=== PATIENT | female | born 1965 | race African-American/Black ===

== ENCOUNTER 2017-11-23 18:58 | Inpatient (IN) ==
[2017-11-23 20:10] LABS: Basophils % 0.3 % (0.0-0.8); Eosinophils # 0.1 10*3/uL (0.0-0.87); Eosinophils % 0.8 % (0.00-10.9); Hemoglobin 11.2 GM/DL (12.0-16.0); Immature Granulocytes % 0.2 %; Immature Granulocytes Absolute 0.02 #; Lymphocytes # 1.8 10*3/uL (1.4-4.0); Lymphocytes % 18.6 % (21.3-54.2); Mean Corpuscular Hemoglobin 28 PG (27-34); Mean Corpuscular Volume 88.6 FL (87-102); Monocytes # 0.6 10*3/uL (0.11-0.8); Monocytes % 6.4 % (1.7-12.7); Neutrophils % 73.7 % (38.7-73.9); Platelet Count 98 T/CUMM (130-400); Red Blood Count 3.95 MC/CUMM (3.8-5.5); Red Cell Distribution Width 16.4 % (9.3-17.3); White Blood Count 9.5 T/CUMM (4-12)
[2017-11-23 20:18] LABS: INR 1.1; PT Patient Result 11.4 SECS
[2017-11-23 20:38] LABS: Alanine Aminotransferase 19 U/L (13-56); Albumin 4.1 G/DL (3.4-5.0); Alkaline Phosphatase 89 U/L (45-117); Amylase 63 U/L (25-115); Aspartate Amino Transferase 28 U/L (0-37); Blood Urea Nitrogen 42 MG/DL (7-18); Calcium 9.5 MG/DL (8.5-10.1); Glucose 127 MG/DL (74-106); Osmolality,Calculated 285.8 MOS/KG (273-304); Potassium 3.9 MMOL/L (3.5-5.1); Sodium 137 MMOL/L (136-145)
[2017-11-23 20:55] LABS: Troponin I Only 0.047 NG/ML (0.00-0.045)
[2017-11-23 22:18] LABS: Platelet Estimate Decreased
[2017-11-23] MEDS ORDERED: MORPHINE 2 MG/1 ML SYRINGE ONE (22:30)
[2017-11-23] MEDS ORDERED: MORPHINE 2 MG/1 ML SYRINGE IV STA (22:36)
[2017-11-23] MEDS ORDERED: ONDANSETRON 4 MG/2 ML VIAL IV STA (22:38)
[2017-11-23] MEDS ORDERED: ONDANSETRON 4 MG/2 ML VIAL ONE (22:39)
[2017-11-23] MEDS ORDERED: GLUCAGON 1 MG VIAL IM PRN (23:04)
[2017-11-23] MEDS ORDERED: DEXTROSE 50% 25 GM/50 ML VIAL IV PRN (23:04)
[2017-11-24] MEDS ORDERED: SODIUM CHLORIDE 0.9% 250 ML IV ONE (01:20)
[2017-11-24 02:05] LABS: ABG Base Excess -0.1 MMOL/L (-2.5-2.5); ABG HCO3 24.4 MMOL/L (20-26); ABG Oxygen Saturation 99.4 % (95-100); ABG PCO2 45.5 MM HG (35-48); ABG TCO2 23.1 MMOL/L (23-27); Allen Test Positive
[2017-11-24 02:25] LABS: Basophils % 0.4 % (0.0-0.8); Eosinophils # 0.1 10*3/uL (0.0-0.87); Eosinophils % 1.5 % (0.00-10.9); Hematocrit 32.4 VOL% (35.7-47.0); Hemoglobin 10.9 GM/DL (12.0-16.0); Immature Granulocytes % 0.1 %; Immature Granulocytes Absolute 0.01 #; Lymphocytes # 1.8 10*3/uL (1.4-4.0); Lymphocytes % 22.7 % (21.3-54.2); Mean Corpuscular HGB Conc 33.6 GM/DL (32-36); Mean Corpuscular Hemoglobin 29 PG (27-34); Mean Corpuscular Volume 87.1 FL (87-102); Mean Platelet Volume 11.5 FL (9.6-12.0); Monocytes # 0.6 10*3/uL (0.11-0.8); Monocytes % 7.5 % (1.7-12.7); Neutrophils # 5.4 10*3/uL (1.4-7.4); Neutrophils % 67.8 % (38.7-73.9); Platelet Count 70 T/CUMM (130-400); Red Blood Count 3.72 MC/CUMM (3.8-5.5); Red Cell Distribution Width 16.4 % (9.3-17.3)
[2017-11-24] MEDS ORDERED: METOPROLOL TARTRATE 5 MG/5 ML VIAL IV ONE ×2 (02:36→05:34)
[2017-11-24 02:50] LABS: Platelet Estimate Decreased
[2017-11-24 02:52] LABS: Troponin I Only 0.037 NG/ML (0.00-0.045)
[2017-11-24 02:53] LABS: Albumin 3.7 G/DL (3.4-5.0); Bilirubin,Total 0.6 MG/DL (0.2-1.0); Calcium 9.5 MG/DL (8.5-10.1); Osmolality,Calculated 294.4 MOS/KG (273-304); Potassium 3.6 MMOL/L (3.5-5.1); Total Protein 7.4 G/DL (6.4-8.3)
[2017-11-24] MEDS ORDERED: METOPROLOL TARTRATE 5 MG/5 ML VIAL IV PRN (06:21)
[2017-11-24] MEDS ORDERED: hydrALAZINE 20 MG/1 ML VIAL ONE (07:01)
[2017-11-24] MEDS: hydrALAZINE 20 MG/1 ML VIAL IV PRN ×2 (07:04→14:45)
[2017-11-24] MEDS: PANTOPRAZOLE 40 MG TABLET PO SCH (08:25)
[2017-11-24] MEDS: ONDANSETRON 4 MG/2 ML VIAL IV PRN (08:43)
[2017-11-24] MEDS: INSULIN LISPRO 100 UNIT/ML SUBCUT SCH ×4 (08:45→21:09)
[2017-11-24] MEDS: DOCUSATE SODIUM 100 MG CAPSULE PO SCH ×2 (08:46→21:24)
[2017-11-24] MEDS ORDERED: NITROGLYCERIN SL 0.4 MG TABLET SL PRN (08:46)
[2017-11-24] MEDS: amLODIPine 5 MG TABLET PO SCH (11:42)
[2017-11-24] MEDS: SEVELAMER CARBONATE 800 MG TABLET PO SCH ×2 (11:46→17:12)
[2017-11-24 13:51] LABS: Troponin I Only 0.059 NG/ML (0.00-0.045)
[2017-11-24] MEDS: INSULIN GLARGINE 100 UNIT/ML SUBCUT SCH (21:10)
[2017-11-24] MEDS: CARVEDILOL 12.5 MG TABLET PO SCH (21:24)
[2017-11-24] MEDS: ASPIRIN EC 81 MG TABLET PO SCH (21:24)
[2017-11-24] MEDS: ROSUVASTATIN 20 MG TABLET PO SCH (21:24)
[2017-11-24] MEDS: levETIRAcetam 500 MG TABLET PO SCH (21:24)
[2017-11-24] MEDS: PRASUGREL 10 MG TABLET PO SCH (21:24)
[2017-11-24] MEDS: CINACALCET 30 MG TABLET PO SCH (21:25)
[2017-11-25] MEDS: ACETAMINOPHEN 325 MG TABLET PO PRN (00:06)
[2017-11-25 05:18] LABS: Basophils % 0.2 % (0.0-0.8); Eosinophils % 0.5 % (0.00-10.9); Hematocrit 34.5 VOL% (35.7-47.0); Hemoglobin 10.9 GM/DL (12.0-16.0); Immature Granulocytes % 0.3 %; Immature Granulocytes Absolute 0.03 #; Lymphocytes # 1.5 10*3/uL (1.4-4.0); Lymphocytes % 17.1 % (21.3-54.2); Mean Corpuscular HGB Conc 31.6 GM/DL (32-36); Mean Corpuscular Hemoglobin 29 PG (27-34); Mean Corpuscular Volume 90.1 FL (87-102); Mean Platelet Volume 12.3 FL (9.6-12.0); Monocytes # 0.7 10*3/uL (0.11-0.8); Monocytes % 7.6 % (1.7-12.7); Neutrophils # 6.5 10*3/uL (1.4-7.4); Neutrophils % 74.3 % (38.7-73.9); Platelet Count 96 T/CUMM (130-400); Red Blood Count 3.83 MC/CUMM (3.8-5.5); Red Cell Distribution Width 17.2 % (9.3-17.3); White Blood Count 8.7 T/CUMM (4-12)
[2017-11-25 05:33] LABS: Potassium 4.2 MMOL/L (3.5-5.1)
[2017-11-25 05:43] LABS: Giant Platelets Few; Hypochromasia 1+; Ovalocytes Slight; Platelet Estimate Decreased
[2017-11-25] MEDS: INSULIN LISPRO 100 UNIT/ML SUBCUT SCH ×4 (08:05→22:05)
[2017-11-25] MEDS: SEVELAMER CARBONATE 800 MG TABLET PO SCH ×3 (08:36→18:50)
[2017-11-25] MEDS: DOCUSATE SODIUM 100 MG CAPSULE PO SCH ×2 (08:37→22:03)
[2017-11-25] MEDS: PANTOPRAZOLE 40 MG TABLET PO SCH (08:46)
[2017-11-25] MEDS: amLODIPine 5 MG TABLET PO SCH (08:46)
[2017-11-25] MEDS: levETIRAcetam 500 MG TABLET PO SCH ×2 (08:46→22:03)
[2017-11-25] MEDS ORDERED: COSYNTROPIN 0.25 MG VIAL IM ONE (09:30)
[2017-11-25 12:29] LABS: Folate 7.3 NG/ML (5.4-24.0)
[2017-11-25] MEDS: hydrALAZINE 20 MG/1 ML VIAL IV PRN (12:52)
[2017-11-25] MEDS: ONDANSETRON 4 MG/2 ML VIAL IV PRN ×2 (14:24→21:25)
[2017-11-25] MEDS: MORPHINE 2 MG/1 ML SYRINGE IV PRN ×2 (14:27→17:40)
[2017-11-25] MEDS: ONDANSETRON ODT 4 MG TABLET PO PRN (17:25)
[2017-11-25] MEDS: CINACALCET 30 MG TABLET PO SCH (21:33)
[2017-11-25] MEDS: ROSUVASTATIN 20 MG TABLET PO SCH (22:02)
[2017-11-25] MEDS: PRASUGREL 10 MG TABLET PO SCH (22:04)
[2017-11-25] MEDS: CARVEDILOL 12.5 MG TABLET PO SCH (22:04)
[2017-11-25] MEDS: ASPIRIN EC 81 MG TABLET PO SCH (22:05)
[2017-11-25] MEDS: INSULIN GLARGINE 100 UNIT/ML SUBCUT SCH (22:06)
[2017-11-26 05:34] LABS: Basophils % 0.3 % (0.0-0.8); Eosinophils # 0.1 10*3/uL (0.0-0.87); Hematocrit 33.4 VOL% (35.7-47.0); Hemoglobin 10.7 GM/DL (12.0-16.0); Immature Granulocytes % 0.3 %; Immature Granulocytes Absolute 0.02 #; Lymphocytes # 1.5 10*3/uL (1.4-4.0); Lymphocytes % 21.6 % (21.3-54.2); Mean Corpuscular Hemoglobin 28 PG (27-34); Mean Corpuscular Volume 88.1 FL (87-102); Mean Platelet Volume 12.1 FL (9.6-12.0); Monocytes # 0.7 10*3/uL (0.11-0.8); Monocytes % 9.9 % (1.7-12.7); Neutrophils # 4.6 10*3/uL (1.4-7.4); Neutrophils % 66.9 % (38.7-73.9); Platelet Count 130 T/CUMM (130-400); Red Blood Count 3.79 MC/CUMM (3.8-5.5); Red Cell Distribution Width 17.4 % (9.3-17.3); White Blood Count 6.8 T/CUMM (4-12)
[2017-11-26 06:13] LABS: Calcium 8.9 MG/DL (8.5-10.1)
[2017-11-26 06:21] LABS: Albumin 3.1 G/DL (3.4-5.0); Bilirubin,Total 0.6 MG/DL (0.2-1.0); Calcium 8.9 MG/DL (8.5-10.1); Osmolality,Calculated 288.8 MOS/KG (273-304); Total Protein 6.6 G/DL (6.4-8.3)
[2017-11-26] MEDS: INSULIN LISPRO 100 UNIT/ML SUBCUT SCH ×4 (07:03→21:36)
[2017-11-26] MEDS: SEVELAMER CARBONATE 800 MG TABLET PO SCH ×3 (08:00→18:46)
[2017-11-26] MEDS: DOCUSATE SODIUM 100 MG CAPSULE PO SCH ×2 (09:48→21:35)
[2017-11-26] MEDS: PANTOPRAZOLE 40 MG TABLET PO SCH (10:00)
[2017-11-26] MEDS: levETIRAcetam 500 MG TABLET PO SCH ×2 (10:00→21:34)
[2017-11-26] MEDS: amLODIPine 5 MG TABLET PO SCH (10:00)
[2017-11-26] MEDS ORDERED: ONDANSETRON 4 MG/2 ML VIAL ONE (11:58)
[2017-11-26] MEDS: ONDANSETRON 4 MG/2 ML VIAL IV PRN ×2 (12:02→18:28)
[2017-11-26] MEDS ORDERED: ETOMIDATE 20 MG/10 ML VIAL IV ONE (12:14)
[2017-11-26] MEDS ORDERED: PROPOFOL 200 MG/20 ML VIAL IV ONE (12:14)
[2017-11-26] MEDS ORDERED: LIDOCAINE 2% 5 ML VIAL ONE (12:14)
[2017-11-26] MEDS: MORPHINE 2 MG/1 ML SYRINGE IV PRN (18:31)
[2017-11-26] MEDS: CINACALCET 30 MG TABLET PO SCH (21:34)
[2017-11-26] MEDS: CARVEDILOL 12.5 MG TABLET PO SCH (21:34)
[2017-11-26] MEDS: METHOCARBAMOL 750 MG TABLET PO PRN (21:34)
[2017-11-26] MEDS: ROSUVASTATIN 20 MG TABLET PO SCH (21:34)
[2017-11-26] MEDS: ASPIRIN EC 81 MG TABLET PO SCH (21:34)
[2017-11-26] MEDS: INSULIN GLARGINE 100 UNIT/ML SUBCUT SCH (21:35)
[2017-11-26] MEDS: PRASUGREL 10 MG TABLET PO SCH (21:35)
[2017-11-27] MEDS: ONDANSETRON ODT 4 MG TABLET PO PRN (04:24)
[2017-11-27] MEDS: MORPHINE 2 MG/1 ML SYRINGE IV PRN ×3 (04:24→22:52)
[2017-11-27 05:25] LABS: Basophils % 0.3 % (0.0-0.8); Eosinophils # 0.2 10*3/uL (0.0-0.87); Eosinophils % 3.1 % (0.00-10.9); Hematocrit 34.4 VOL% (35.7-47.0); Hemoglobin 10.7 GM/DL (12.0-16.0); Immature Granulocytes % 0.2 %; Immature Granulocytes Absolute 0.01 #; Lymphocytes # 1.7 10*3/uL (1.4-4.0); Lymphocytes % 26.7 % (21.3-54.2); Mean Corpuscular HGB Conc 31.1 GM/DL (32-36); Mean Corpuscular Hemoglobin 28 PG (27-34); Mean Corpuscular Volume 90.8 FL (87-102); Mean Platelet Volume 11.2 FL (9.6-12.0); Monocytes # 0.7 10*3/uL (0.11-0.8); Monocytes % 11.4 % (1.7-12.7); Neutrophils # 3.6 10*3/uL (1.4-7.4); Neutrophils % 58.3 % (38.7-73.9); Platelet Count 124 T/CUMM (130-400); Red Blood Count 3.79 MC/CUMM (3.8-5.5); Red Cell Distribution Width 16.9 % (9.3-17.3); White Blood Count 6.2 T/CUMM (4-12)
[2017-11-27 06:29] LABS: Calcium 8.9 MG/DL (8.5-10.1); Osmolality,Calculated 276.8 MOS/KG (273-304); Potassium 3.7 MMOL/L (3.5-5.1)
[2017-11-27] MEDS: INSULIN LISPRO 100 UNIT/ML SUBCUT SCH ×4 (07:16→20:20)
[2017-11-27] MEDS: DOCUSATE SODIUM 100 MG CAPSULE PO SCH ×2 (09:21→20:14)
[2017-11-27] MEDS: levETIRAcetam 500 MG TABLET PO SCH ×2 (09:21→20:14)
[2017-11-27] MEDS: amLODIPine 5 MG TABLET PO SCH (09:21)
[2017-11-27] MEDS: PANTOPRAZOLE 40 MG TABLET PO SCH (09:21)
[2017-11-27] MEDS: SEVELAMER CARBONATE 800 MG TABLET PO SCH ×4 (09:21→18:19)
[2017-11-27] MEDS: METHOCARBAMOL 750 MG TABLET PO PRN (13:02)
[2017-11-27] MEDS: ONDANSETRON 4 MG/2 ML VIAL IV PRN ×2 (14:15→22:52)
[2017-11-27] MEDS: ROSUVASTATIN 20 MG TABLET PO SCH (20:14)
[2017-11-27] MEDS: PRASUGREL 10 MG TABLET PO SCH (20:14)
[2017-11-27] MEDS: ASPIRIN EC 81 MG TABLET PO SCH (20:14)
[2017-11-27] MEDS: CINACALCET 30 MG TABLET PO SCH (20:15)
[2017-11-27] MEDS: CARVEDILOL 12.5 MG TABLET PO SCH (20:15)
[2017-11-27] MEDS: INSULIN GLARGINE 100 UNIT/ML SUBCUT SCH (20:21)
[2017-11-28 05:12] LABS: Basophils % 0.3 % (0.0-0.8); Eosinophils # 0.2 10*3/uL (0.0-0.87); Eosinophils % 2.9 % (0.00-10.9); Hematocrit 34.9 VOL% (35.7-47.0); Hemoglobin 11.1 GM/DL (12.0-16.0); Immature Granulocytes % 0.2 %; Immature Granulocytes Absolute 0.01 #; Lymphocytes # 1.6 10*3/uL (1.4-4.0); Lymphocytes % 24.4 % (21.3-54.2); Mean Corpuscular HGB Conc 31.8 GM/DL (32-36); Mean Corpuscular Hemoglobin 28 PG (27-34); Mean Corpuscular Volume 88.8 FL (87-102); Mean Platelet Volume 11.1 FL (9.6-12.0); Monocytes # 0.7 10*3/uL (0.11-0.8); Monocytes % 10.4 % (1.7-12.7); Neutrophils # 4.1 10*3/uL (1.4-7.4); Neutrophils % 61.8 % (38.7-73.9); Platelet Count 132 T/CUMM (130-400); Red Blood Count 3.93 MC/CUMM (3.8-5.5); White Blood Count 6.6 T/CUMM (4-12)
[2017-11-28 05:39] LABS: Osmolality,Calculated 280.7 MOS/KG (273-304)
[2017-11-28] MEDS: SEVELAMER CARBONATE 800 MG TABLET PO SCH ×3 (10:36→18:14)
[2017-11-28] MEDS: INSULIN LISPRO 100 UNIT/ML SUBCUT SCH ×4 (10:36→21:49)
[2017-11-28] MEDS ORDERED: diphenhydrAMINE CAP 25 MG CAPSULE PO PRN (11:14)
[2017-11-28] MEDS: DOCUSATE SODIUM 100 MG CAPSULE PO SCH ×2 (11:36→21:48)
[2017-11-28] MEDS: levETIRAcetam 500 MG TABLET PO SCH ×2 (11:36→21:47)
[2017-11-28] MEDS: PANTOPRAZOLE 40 MG TABLET PO SCH (11:37)
[2017-11-28] MEDS: amLODIPine 5 MG TABLET PO SCH (11:37)
[2017-11-28] MEDS: ACETAMINOPHEN 325 MG TABLET PO PRN (11:38)
[2017-11-28] MEDS: CARVEDILOL 12.5 MG TABLET PO SCH (21:48)
[2017-11-28] MEDS: ROSUVASTATIN 20 MG TABLET PO SCH (21:48)
[2017-11-28] MEDS: CINACALCET 30 MG TABLET PO SCH (21:48)
[2017-11-28] MEDS: INSULIN GLARGINE 100 UNIT/ML SUBCUT SCH (21:48)
[2017-11-28] MEDS: ASPIRIN EC 81 MG TABLET PO SCH (21:48)
[2017-11-28] MEDS: PRASUGREL 10 MG TABLET PO SCH (21:48)
[2017-11-28] MEDS: MORPHINE 2 MG/1 ML SYRINGE IV PRN (23:19)
[2017-11-28] MEDS: ONDANSETRON 4 MG/2 ML VIAL IV PRN (23:20)
[2017-11-29 07:19] LABS: Basophils % 0.4 % (0.0-0.8); Eosinophils # 0.1 10*3/uL (0.0-0.87); Eosinophils % 2.1 % (0.00-10.9); Hematocrit 36.7 VOL% (35.7-47.0); Hemoglobin 11.3 GM/DL (12.0-16.0); Immature Granulocytes % 0.2 %; Immature Granulocytes Absolute 0.01 #; Lymphocytes # 1.5 10*3/uL (1.4-4.0); Lymphocytes % 29.4 % (21.3-54.2); Mean Corpuscular HGB Conc 30.8 GM/DL (32-36); Mean Corpuscular Hemoglobin 28 PG (27-34); Mean Corpuscular Volume 91.5 FL (87-102); Mean Platelet Volume 10.9 FL (9.6-12.0); Monocytes # 0.5 10*3/uL (0.11-0.8); Monocytes % 10.4 % (1.7-12.7); NRBC # 0.02 10*3/uL; Neutrophils % 57.5 % (38.7-73.9); Platelet Count 124 T/CUMM (130-400); Red Blood Count 4.01 MC/CUMM (3.8-5.5); Red Cell Distribution Width 16.7 % (9.3-17.3); White Blood Count 5.2 T/CUMM (4-12)
[2017-11-29 07:42] LABS: Calcium 8.4 MG/DL (8.5-10.1); Osmolality,Calculated 280.7 MOS/KG (273-304); Potassium 4.2 MMOL/L (3.5-5.1)
[2017-11-29] MEDS: amLODIPine 5 MG TABLET PO SCH (08:42)
[2017-11-29] MEDS: INSULIN LISPRO 100 UNIT/ML SUBCUT SCH ×4 (08:42→21:23)
[2017-11-29] MEDS: levETIRAcetam 500 MG TABLET PO SCH ×2 (08:42→21:18)
[2017-11-29] MEDS: DOCUSATE SODIUM 100 MG CAPSULE PO SCH ×2 (08:42→21:18)
[2017-11-29] MEDS: PANTOPRAZOLE 40 MG TABLET PO SCH (08:42)
[2017-11-29] MEDS: SEVELAMER CARBONATE 800 MG TABLET PO SCH ×3 (08:42→18:15)
[2017-11-29] MEDS: MAGNESIUM HYDROXIDE SUSP 30 ML UDCUP PO PRN ×2 (12:47→21:05)
[2017-11-29] MEDS: MORPHINE 2 MG/1 ML SYRINGE IV PRN ×2 (21:05→23:05)
[2017-11-29] MEDS: ASPIRIN EC 81 MG TABLET PO SCH (21:16)
[2017-11-29] MEDS: CINACALCET 30 MG TABLET PO SCH (21:17)
[2017-11-29] MEDS: ROSUVASTATIN 20 MG TABLET PO SCH (21:17)
[2017-11-29] MEDS: PRASUGREL 10 MG TABLET PO SCH (21:18)
[2017-11-29] MEDS: ONDANSETRON 4 MG/2 ML VIAL IV PRN (21:19)
[2017-11-29] MEDS: INSULIN GLARGINE 100 UNIT/ML SUBCUT SCH (21:20)
[2017-11-29] MEDS: CARVEDILOL 12.5 MG TABLET PO SCH (23:06)
[2017-11-29] MEDS: ONDANSETRON ODT 4 MG TABLET PO PRN (23:06)
[2017-11-30 07:29] LABS: Basophils % 0.2 % (0.0-0.8); Eosinophils # 0.2 10*3/uL (0.0-0.87); Hematocrit 35.1 VOL% (35.7-47.0); Hemoglobin 11.3 GM/DL (12.0-16.0); Immature Granulocytes % 0.2 %; Immature Granulocytes Absolute 0.01 #; Lymphocytes # 1.5 10*3/uL (1.4-4.0); Lymphocytes % 25.6 % (21.3-54.2); Mean Corpuscular HGB Conc 32.2 GM/DL (32-36); Mean Corpuscular Hemoglobin 29 PG (27-34); Mean Corpuscular Volume 89.5 FL (87-102); Mean Platelet Volume 11.2 FL (9.6-12.0); Monocytes # 0.6 10*3/uL (0.11-0.8); Monocytes % 11.1 % (1.7-12.7); Neutrophils # 3.4 10*3/uL (1.4-7.4); Neutrophils % 59.9 % (38.7-73.9); Platelet Count 120 T/CUMM (130-400); Red Blood Count 3.92 MC/CUMM (3.8-5.5); Red Cell Distribution Width 17.2 % (9.3-17.3); White Blood Count 5.7 T/CUMM (4-12)
[2017-11-30 07:59] LABS: Calcium 9.1 MG/DL (8.5-10.1); Osmolality,Calculated 282.5 MOS/KG (273-304); Potassium 4.3 MMOL/L (3.5-5.1)
[2017-11-30] MEDS: INSULIN LISPRO 100 UNIT/ML SUBCUT SCH ×3 (09:11→17:30)
[2017-11-30] MEDS: SEVELAMER CARBONATE 800 MG TABLET PO SCH ×3 (09:30→17:52)
[2017-11-30] MEDS: DOCUSATE SODIUM 100 MG CAPSULE PO SCH (09:31)
[2017-11-30] MEDS: amLODIPine 5 MG TABLET PO SCH (09:31)
[2017-11-30] MEDS: PANTOPRAZOLE 40 MG TABLET PO SCH (09:31)
[2017-11-30] MEDS: levETIRAcetam 500 MG TABLET PO SCH (09:31)
[2017-11-30] MEDS: METHOCARBAMOL 750 MG TABLET PO PRN (12:53)
[2017-11-30 17:06] VITALS: BP 171/83
== END 2017-11-30 19:05 | DRG 312 ==
LOC: EDBD → EDUNIT# → N.ED 18:58 → MERGE 23:04 → N.EDINP 23:04 → N.5E 11-24 00:24 → N.CC 11-24 01:42 → N.TELEN 11-27 20:55
PROVIDERS: ADMIT Internal Medicine; ATTEND Internal Medicine

== ENCOUNTER 2018-11-27 01:24 | Observation (INO) ==
[2018-11-27] MEDS ORDERED: ASPIRIN 325 MG TABLET PO STA (02:28)
[2018-11-27 02:49] LABS: Albumin 3.5 G/DL (3.4-5.0); Bilirubin,Total 0.4 MG/DL (0.2-1.0); Calcium 9.3 MG/DL (8.5-10.1); Osmolality,Calculated 301.1 MOS/KG (273-304); Potassium 5.5 MMOL/L (3.5-5.1); Total Protein 8.4 G/DL (6.4-8.3)
[2018-11-27] MEDS: NITROGLYCERIN SL 0.4 MG TABLET SL PRN ×2 (02:53→02:58)
[2018-11-27] MEDS ORDERED: PROMETHAZINE 25 MG TABLET PO STA (03:08)
[2018-11-27] MEDS ORDERED: MORPHINE 4 MG/1 ML VIAL IV STA (03:08)
[2018-11-27] MEDS ORDERED: NITROGLYCERIN SL 0.4 MG TABLET SL STA ×2 (03:09→03:56)
[2018-11-27 03:38] LABS: Basophils % 0.3 % (0.0-0.8); Eosinophils # 0.1 10*3/uL (0.0-0.87); Eosinophils % 1.1 % (0.00-10.9); Hematocrit 33.2 VOL% (35.7-47.0); Hemoglobin 10.2 GM/DL (12.0-16.0); Immature Granulocytes % 0.2 %; Immature Granulocytes Absolute 0.02 #; Lymphocytes # 1.5 10*3/uL (1.4-4.0); Lymphocytes % 16.9 % (21.3-54.2); Mean Corpuscular HGB Conc 30.7 GM/DL (32-36); Mean Corpuscular Hemoglobin 30 PG (27-34); Mean Corpuscular Volume 96.8 FL (87-102); Mean Platelet Volume 10.6 FL (9.6-12.0); Monocytes # 0.6 10*3/uL (0.11-0.8); Monocytes % 7.2 % (1.7-12.7); Neutrophils # 6.6 10*3/uL (1.4-7.4); Neutrophils % 74.3 % (38.7-73.9); Platelet Count 135 T/CUMM (130-400); Red Blood Count 3.43 MC/CUMM (3.8-5.5); Red Cell Distribution Width 15.1 % (9.3-17.3); White Blood Count 8.9 T/CUMM (4-12)
[2018-11-27 03:43] LABS: PT Patient Result 10.4 SECS
[2018-11-27] MEDS ORDERED: PROMETHAZINE 25 MG/1 ML VIAL IM PRN (03:56)
[2018-11-27 05:29] LABS: Troponin I 0.047 NG/ML (0.00-0.045)
[2018-11-27 08:05] LABS: Troponin I 0.055 NG/ML (0.00-0.045)
[2018-11-27 09:48] LABS: Hepatitis A Ab IgM Quant 0.31 Index; Hepatitis A Ab IgM Result Negative (Negative); Hepatitis B Core IgM Quant 0.12 Index; Hepatitis B Core IgM Result Negative (Negative); Hepatitis B Surface Ag Result Negative (Negative); Hepatitis C Virus Ab Quant 0.04 Index; Hepatitis C Virus Ab Result Negative (Negative)
[2018-11-27 10:37] LABS: Troponin I 0.057 NG/ML (0.00-0.045)
[2018-11-27] MEDS ORDERED: NITROGLYCERIN SL 0.4 MG TABLET SL PRN (10:37)
[2018-11-27] MEDS ORDERED: hydrOXYzine HCL 10 MG TABLET PO PRN (10:37)
[2018-11-27] MEDS: SEVELAMER CARBONATE 800 MG TABLET PO SCH ×2 (13:18→17:32)
[2018-11-27] MEDS: ACETAMINOPHEN 325 MG TABLET PO PRN ×2 (13:35→20:05)
[2018-11-27] MEDS: PANTOPRAZOLE 40 MG TABLET PO SCH (13:38)
[2018-11-27] MEDS: ASPIRIN EC 325 MG TABLET PO SCH (13:38)
[2018-11-27] MEDS: CINACALCET 30 MG TABLET PO SCH (21:43)
[2018-11-27] MEDS: ROSUVASTATIN 20 MG TABLET PO SCH (21:43)
[2018-11-27] MEDS: INSULIN GLARGINE 100 UNIT/ML SUBCUT SCH (21:44)
[2018-11-28] MEDS: amLODIPine 5 MG TABLET PO SCH (08:47)
[2018-11-28] MEDS: SEVELAMER CARBONATE 800 MG TABLET PO SCH ×3 (08:47→17:05)
[2018-11-28] MEDS: PANTOPRAZOLE 40 MG TABLET PO SCH (08:47)
[2018-11-28] MEDS: ASPIRIN EC 325 MG TABLET PO SCH (08:47)
[2018-11-28] MEDS: PRASUGREL 10 MG TABLET PO SCH (08:47)
[2018-11-28] MEDS: ACETAMINOPHEN 325 MG TABLET PO PRN ×2 (08:51→15:36)
[2018-11-28] MEDS: ROSUVASTATIN 20 MG TABLET PO SCH (21:31)
[2018-11-28] MEDS: INSULIN GLARGINE 100 UNIT/ML SUBCUT SCH (21:31)
[2018-11-28] MEDS: CINACALCET 30 MG TABLET PO SCH (21:31)
[2018-11-29] MEDS ORDERED: POTASSIUM CHLORIDE RIDER 10 MEQ in PREMIX 1 EACH IV PRN (08:39)
[2018-11-29] MEDS ORDERED: MAGNESIUM SULF RIDER 2 GM in PREMIX 1 EACH IV PRN (08:39)
[2018-11-29] MEDS ORDERED: LINACLOTIDE 145 MCG CAPSULE PO SCH (09:00)
[2018-11-29] MEDS: ASPIRIN EC 81 MG TABLET PO SCH (09:42)
[2018-11-29] MEDS: PANTOPRAZOLE 40 MG TABLET PO SCH (09:42)
[2018-11-29] MEDS: amLODIPine 5 MG TABLET PO SCH (09:42)
[2018-11-29] MEDS: PRASUGREL 10 MG TABLET PO SCH (09:43)
[2018-11-29] MEDS ORDERED: FAMOTIDINE 20 MG/2 ML VIAL IV ONE (10:30)
[2018-11-29] MEDS ORDERED: diphenhydrAMINE 50 MG/1 ML VIAL IV ONE (10:30)
[2018-11-29] MEDS ORDERED: HYDROCORTISONE 100 MG VIAL IV ONE (10:30)
[2018-11-29] MEDS ORDERED: HEPARIN/NACL 0.9% 2 UNITS/ML 1,000 ML IV ONE (11:39)
[2018-11-29] MEDS: SODIUM CHLORIDE 0.9% 1,000 ML IV SCH (12:30)
[2018-11-29] MEDS ORDERED: LIDOCAINE 1% 20 ML VIAL ONE (13:34)
[2018-11-29] MEDS ORDERED: MIDAZOLAM 2 MG/2 ML VIAL ONE (13:37)
[2018-11-29] MEDS ORDERED: fentaNYL 100 MCG/2 ML VIAL ONE (13:37)
[2018-11-29] MEDS ORDERED: HYDROmorphone 2 MG/1 ML VIAL ONE (14:18)
[2018-11-29] MEDS: ACETAMINOPHEN 325 MG TABLET PO PRN ×2 (15:55→21:57)
[2018-11-29] MEDS: SEVELAMER CARBONATE 800 MG TABLET PO SCH ×2 (17:59→18:49)
[2018-11-29] MEDS: ASPIRIN EC 325 MG TABLET PO SCH (18:00)
[2018-11-29] MEDS: CINACALCET 30 MG TABLET PO SCH (21:52)
[2018-11-29] MEDS: ROSUVASTATIN 20 MG TABLET PO SCH (21:56)
[2018-11-29] MEDS: INSULIN GLARGINE 100 UNIT/ML SUBCUT SCH (22:00)
[2018-11-30] MEDS ORDERED: methylPREDNISolone SOD SUC 125 MG/2 ML VIAL IV ONE (05:00)
[2018-11-30] MEDS: SODIUM CHLORIDE 0.9% 1,000 ML IV SCH ×2 (06:20→12:41)
[2018-11-30] MEDS ORDERED: diphenhydrAMINE 50 MG/1 ML VIAL ONE (08:00)
[2018-11-30] MEDS ORDERED: EPINEPHrine 1 MG/ML VIAL ONE (08:01)
[2018-11-30] MEDS ORDERED: methylPREDNISolone SOD SUC 125 MG/2 ML VIAL ONE (08:01)
[2018-11-30] MEDS ORDERED: diphenhydrAMINE 50 MG/1 ML VIAL IV ONE (08:10)
[2018-11-30] MEDS ORDERED: HEPARIN 5,000 UNIT/1 ML VIAL ONE (09:03)
[2018-11-30] MEDS ORDERED: ALTEPLASE 2 MG VIAL ONE (09:10)
[2018-11-30 12:07] LABS: Calcium 8.2 MG/DL (8.5-10.1)
[2018-11-30 12:11] LABS: Potassium 6.1 MMOL/L (3.5-5.1)
[2018-11-30] MEDS: SEVELAMER CARBONATE 800 MG TABLET PO SCH ×2 (12:41→14:39)
[2018-11-30] MEDS: PRASUGREL 10 MG TABLET PO SCH (14:38)
[2018-11-30] MEDS: ASPIRIN EC 81 MG TABLET PO SCH (14:38)
[2018-11-30] MEDS: amLODIPine 5 MG TABLET PO SCH (14:38)
[2018-11-30] MEDS: PANTOPRAZOLE 40 MG TABLET PO SCH (14:39)
[2018-11-30 16:12] VITALS: BP 150/69
== END 2018-11-30 16:14 | disposition home or self-care (01) ==
LOC: N.EDINP 01:24 → N.ED 01:24 → N.TELES 04:12
PROVIDERS: ADMIT Internal Medicine; ATTEND Internal Medicine
PROC: CLCCHCL (ICD-10-PCS; 2018-11-29 12:45)

== ENCOUNTER 2019-07-20 08:58 | Inpatient (IN) ==
[~2019-07-20 08:58] MED LIST: CEFUROXIME INJ 1,500 MG in SYRINGE 1 EACH IV ONE; DEXTROSE 50% 25 GM/50 ML VIAL IV PRN; GLUCAGON 1 MG VIAL IM PRN
[2019-07-20] MEDS ORDERED: CHLORHEXIDINE 4% SOLN 118 ML BOTTLE TOP SCH (09:00)
[2019-07-20] MEDS ORDERED: CHLORHEXIDINE 0.12% ORAL RINSE 60 ML BOTTLE SWISH/SPIT SCH (09:00)
[2019-07-20 11:54] LABS: ABG Base Excess 1.4 MMOL/L (-2.5-2.5); ABG HCO3 25.6 MMOL/L (20-26); ABG PCO2 39.9 MM HG (35-48); ABG PH 7.419 (7.35-7.45); ABG PO2 76.2 MM HG (80-95); ABG TCO2 23.5 MMOL/L (23-27); Allen Test Positive; Pt O2 Delivery Device Room Air
[2019-07-20] MEDS ORDERED: INSULIN LISPRO 100 UNIT/ML SUBCUT ONE (23:18)
[2019-07-21 07:08] LABS: Basophils % 0.1 % (0.0-0.8); Eosinophils % 0.4 % (0.00-10.9); Hematocrit 32.2 VOL% (35.7-47.0); Hemoglobin 10.1 GM/DL (12.0-16.0); Immature Granulocytes % 0.1 %; Immature Granulocytes Absolute 0.01 #; Lymphocytes # 1.1 10*3/uL (1.4-4.0); Lymphocytes % 16.4 % (21.3-54.2); Mean Corpuscular HGB Conc 31.4 GM/DL (32-36); Mean Corpuscular Volume 94.4 FL (87-102); Mean Platelet Volume 10.7 FL (9.6-12.0); Monocytes % 10.9 % (1.7-12.7); Neutrophils % 72.1 % (38.7-73.9); Platelet Count 114 T/CUMM (130-400); Red Blood Count 3.41 MC/CUMM (3.8-5.5); Red Cell Distribution Width 14.7 % (9.3-17.3); White Blood Count 6.8 T/CUMM (4-12)
[2019-07-21 07:26] LABS: Albumin 3.1 G/DL (3.4-5.0); Bilirubin,Total 0.4 MG/DL (0.2-1.0); Calcium 8.2 MG/DL (8.5-10.1); Osmolality,Calculated 294.4 MOS/KG (273-304); Total Protein 6.9 G/DL (6.4-8.3)
[2019-07-21] MEDS: CHLORHEXIDINE 4% SOLN 118 ML BOTTLE TOP SCH ×3 (08:02→21:12)
[2019-07-21] MEDS: amLODIPine 5 MG TABLET PO SCH (14:07)
[2019-07-21] MEDS: SODIUM CHLORIDE 0.9% 1,000 ML IV SCH (14:07)
[2019-07-21 20:39] LABS: Calcium 8.2 MG/DL (8.5-10.1)
[2019-07-21] MEDS ORDERED: ROSUVASTATIN 20 MG TABLET PO SCH (21:00)
[2019-07-21] MEDS ORDERED: INSULIN GLARGINE 100 UNIT/ML SUBCUT SCH (21:00)
[2019-07-21] MEDS: CHLORHEXIDINE 0.12% ORAL RINSE 60 ML BOTTLE SWISH/SPIT SCH (21:08)
[2019-07-21] MEDS ORDERED: ACETAMINOPHEN 325 MG TABLET PO PRN (21:59)
[2019-07-21] MEDS ORDERED: oxyCODONE/ACETAMINOPHEN 5-325 MG TABLET PO PRN (22:00)
[2019-07-22] MEDS ORDERED: PAPAVERINE 60 MG/2 ML VIAL ONE (04:24)
[2019-07-22] MEDS ORDERED: VANCOMYCIN 1,000 MG VIAL ONE (04:24)
[2019-07-22] MEDS ORDERED: VANCOMYCIN 500 MG VIAL ONE (04:24)
[2019-07-22] MEDS: CHLORHEXIDINE 4% SOLN 118 ML BOTTLE TOP SCH ×2 (04:30→11:59)
[2019-07-22] MEDS ORDERED: CEFUROXIME INJ 1,500 MG in SYRINGE 1 EACH IV ONE (05:00)
[2019-07-22] MEDS ORDERED: PHENYLEPHRINE DRIP 20 MG/250 ML PREMIX IV ONE (05:33)
[2019-07-22] MEDS ORDERED: HEPARIN/NACL 0.9% 2 UNITS/ML 500 ML IV ONE (05:33)
[2019-07-22] MEDS ORDERED: SUFentanil 250 MCG/5 ML AMP ONE (05:33)
[2019-07-22] MEDS ORDERED: MIDAZOLAM 10 MG/2 ML VIAL ONE (05:34)
[2019-07-22] MEDS ORDERED: FAMOTIDINE 20 MG TABLET PO ONE (06:00)
[2019-07-22] MEDS ORDERED: DIAZEPAM 5 MG TABLET PO ONE (06:00)
[2019-07-22 08:14] LABS: ABG Base Excess 4.6 MMOL/L (-2.5-2.5); ABG HCO3 28.6 MMOL/L (20-26); ABG PCO2 32.4 MM HG (35-48); ABG PH 7.531 (7.35-7.45); ABG TCO2 24.8 MMOL/L (23-27); Glucose Heart Surgery 221 MG/DL (74-106); Hematocrit Heart Surgery 28.7 PERCENT (37-47); Hemoglobin Heart Surgery 9.3 G/DL (12.0-16.0); Ionized Calcium Arterial 0.99 MMOL/L (1.21-1.46); PCO2 Patient Temp Arterial 32.4 MMHG; PH Patient Temp Arterial 7.531; Patient Temperature 37 CELCIUS; Potassium Heart/CVR 3.7 MMOL/L (3.5-5.1); Sodium Heart/CVR 137 MMOL/L (135-145)
[2019-07-22 09:42] LABS: Hematocrit Heart Surgery 27.4 PERCENT (37-47); Hemoglobin Heart Surgery 8.8 G/DL (12.0-16.0); PCO2 Patient Temp Venous 32.2 MM HG; PH Patient Temp Venous 7.502; PO2 Patient Temp Venous 39.4 MM HG; Potassium Heart/CVR 4.3 MMOL/L (3.5-5.1); VBG Base Excess 2.4 MEQ/L (0-4); VBG HCO3 26.4 MEQ/L (24-28); VBG Oxygen Saturation 88.7 %; VBG PCO2 37.2 MMHG (41-51); VBG PH 7.457; VBG PO2 48.4 MMHG (17-40)
[2019-07-22 10:05] LABS: Hemoglobin Heart Surgery 9.2 G/DL (12.0-16.0); PCO2 Patient Temp Venous 27.5 MM HG; PH Patient Temp Venous 7.537; PO2 Patient Temp Venous 40.2 MM HG; Potassium Heart/CVR 4.4 MMOL/L (3.5-5.1); VBG Base Excess 0.4 MEQ/L (0-4); VBG HCO3 23.7 MEQ/L (24-28); VBG Oxygen Saturation 88.8 %; VBG PCO2 32.8 MMHG (41-51); VBG PH 7.476; VBG PO2 53.2 MMHG (17-40)
[2019-07-22] MEDS ORDERED: NITROPRUSSIDE 50 MG/2 ML VIAL ONE (10:06)
[2019-07-22] MEDS ORDERED: SODIUM BICARBONATE 50 MEQ/50 ML VIAL IV ONE ×4 (10:06→17:26)
[2019-07-22] MEDS ORDERED: PHENYLEPHRINE DRIP 40 MG/250 ML PREMIX IV ONE (10:06)
[2019-07-22] MEDS ORDERED: ALBUMIN 5% 12.5 GM/250 ML VIAL IV ONE ×2 (10:07→12:17)
[2019-07-22] MEDS ORDERED: CALCIUM CHLORIDE 1,000 MG/10 ML SYRINGE IV ONE ×4 (10:07→14:55)
[2019-07-22] MEDS ORDERED: POTASSIUM CHLORIDE RIDER 100 ML IV ONE (10:07)
[2019-07-22 10:39] LABS: Hematocrit Heart Surgery 25.6 PERCENT (37-47); Hemoglobin Heart Surgery 8.2 G/DL (12.0-16.0); PH Patient Temp Venous 7.479; PO2 Patient Temp Venous 38.2 MM HG; Potassium Heart/CVR 4.5 MMOL/L (3.5-5.1); VBG Base Excess 0.8 MEQ/L (0-4); VBG Oxygen Saturation 88.1 %; VBG PCO2 38.8 MMHG (41-51); VBG PH 7.42; VBG PO2 50.2 MMHG (17-40)
[2019-07-22 11:05] LABS: Hematocrit Heart Surgery 26.5 PERCENT (37-47); Hemoglobin Heart Surgery 8.5 G/DL (12.0-16.0); PCO2 Patient Temp Venous 34.2 MM HG; PH Patient Temp Venous 7.461; PO2 Patient Temp Venous 40.1 MM HG; Potassium Heart/CVR 4.8 MMOL/L (3.5-5.1); VBG Base Excess 0.8 MEQ/L (0-4); VBG Oxygen Saturation 82.9 %; VBG PCO2 35.8 MMHG (41-51); VBG PH 7.446
[2019-07-22] MEDS: amLODIPine 5 MG TABLET PO SCH (11:59)
[2019-07-22] MEDS: SODIUM CHLORIDE 0.9% 1,000 ML IV SCH (11:59)
[2019-07-22] MEDS: CHLORHEXIDINE 0.12% ORAL RINSE 60 ML BOTTLE SWISH/SPIT SCH ×2 (12:00→21:06)
[2019-07-22 12:15] LABS: ABG Base Excess -0.3 MMOL/L (-2.5-2.5); ABG HCO3 24.2 MMOL/L (20-26); ABG PH 7.411 (7.35-7.45); ABG TCO2 22.5 MMOL/L (23-27); Glucose Heart Surgery 301 MG/DL (74-106); Hematocrit Heart Surgery 24.8 PERCENT (37-47); Hemoglobin Heart Surgery 7.9 G/DL (12.0-16.0); Ionized Calcium Arterial 1.01 MMOL/L (1.21-1.46); PH Patient Temp Arterial 7.411; Patient Temperature 37 CELCIUS; Potassium Heart/CVR 4.3 MMOL/L (3.5-5.1); Sodium Heart/CVR 134 MMOL/L (135-145)
[2019-07-22] MEDS ORDERED: HEPARIN 10,000 UNIT/10 ML VIAL ONE (12:17)
[2019-07-22] MEDS ORDERED: DEXTROSE 5% KCL 20 MEQ 20 MEQ/1,000 ML BAG IV ONE (12:17)
[2019-07-22] MEDS ORDERED: ALBUMIN 25% 25 GM/100 ML VIAL IV ONE (12:17)
[2019-07-22] MEDS ORDERED: methylPREDNISolone SOD SUC 1,000 MG/8 ML VIAL ONE (12:17)
[2019-07-22] MEDS ORDERED: LIDOCAINE 2% 5 ML VIAL ONE ×2 (12:17→15:06)
[2019-07-22] MEDS ORDERED: MANNITOL 100 GM/500 ML BAG IV ONE (12:17)
[2019-07-22] MEDS ORDERED: MAGNESIUM SULFATE 5 GM/10 ML VIAL IV ONE (12:17)
[2019-07-22] MEDS ORDERED: PROTAMINE SULFATE 250 MG/25 ML VIAL IV ONE (12:17)
[2019-07-22] MEDS ORDERED: PROTAMINE SULFATE 50 MG/5 ML VIAL IV ONE ×3 (12:18→14:25)
[2019-07-22] MEDS ORDERED: DOBUTamine 500 MG/250 ML PREMIX IV ONE ×2 (13:29→15:06)
[2019-07-22] MEDS ORDERED: MORPHINE 10 MG/1 ML VIAL IV PRN (14:20)
[2019-07-22] MEDS ORDERED: VECURONIUM 10 MG VIAL IV PRN ×2 (14:20)
[2019-07-22] MEDS ORDERED: INSULIN REGULAR 100 UNIT/ML IV ONE (14:20)
[2019-07-22] MEDS ORDERED: PHENYLEPHRINE DRIP 40 MG/250 ML PREMIX IV PRN (14:20)
[2019-07-22] MEDS ORDERED: POTASSIUM CHLORIDE RIDER 10 MEQ in PREMIX 1 EACH IV PRN (14:20)
[2019-07-22] MEDS ORDERED: LACTATED RINGERS 250 ML IV PRN (14:20)
[2019-07-22] MEDS ORDERED: ONDANSETRON 4 MG/2 ML VIAL IV PRN (14:20)
[2019-07-22] MEDS ORDERED: ACETAMINOPHEN 650 MG SUPP RECTAL PRN (14:20)
[2019-07-22] MEDS ORDERED: NITROPRUSSIDE 100 MG in DEXTROSE 5% 250 ML IV PRN (14:20)
[2019-07-22] MEDS ORDERED: MIDAZOLAM 2 MG/2 ML VIAL IV PRN (14:20)
[2019-07-22] MEDS ORDERED: INSULIN REGULAR 100 UNIT/ML IV PRN (14:20)
[2019-07-22] MEDS ORDERED: MORPHINE 4 MG/1 ML VIAL IV PRN (14:20)
[2019-07-22] MEDS ORDERED: DEXTROSE 50% 25 GM/50 ML VIAL IV PRN ×2 (14:20)
[2019-07-22] MEDS ORDERED: MAGNESIUM SULF RIDER 4 GM in PREMIX 1 EACH IV PRN (14:20)
[2019-07-22] MEDS ORDERED: MAGNESIUM SULF RIDER 2 GM in PREMIX 1 EACH IV PRN (14:20)
[2019-07-22] MEDS ORDERED: MIDAZOLAM 10 MG/2 ML VIAL IV PRN (14:20)
[2019-07-22] MEDS ORDERED: CALCIUM CHLORIDE 1,000 MG/10 ML SYRINGE IV PRN (14:20)
[2019-07-22] MEDS ORDERED: SODIUM CHLORIDE 0.45% 1,000 ML IV SCH ×2 (14:20)
[2019-07-22 14:26] LABS: ABG Base Excess -5.5 MMOL/L (-2.5-2.5); ABG HCO3 19.8 MMOL/L (20-26); ABG Oxygen Saturation 99.1 % (95-100); ABG PCO2 38.9 MM HG (35-48); ABG TCO2 19.2 MMOL/L (23-27); Glucose Heart Surgery 379 MG/DL (74-106); Hematocrit Heart Surgery 20.1 PERCENT (37-47); Potassium Heart/CVR 3.9 MMOL/L (3.5-5.1)
[2019-07-22 14:27] LABS: Hemoglobin Heart Surgery 6.4 G/DL (12.0-16.0)
[2019-07-22 14:30] LABS: Basophils % 0.1 % (0.0-0.8); Eosinophils % 0.3 % (0.00-10.9); Hematocrit 19.7 VOL% (35.7-47.0); Lymphocytes # 2.3 10*3/uL (1.4-4.0); Lymphocytes % 22.7 % (21.3-54.2); Mean Corpuscular HGB Conc 31.5 GM/DL (32-36); Mean Corpuscular Volume 96.1 FL (87-102); Mean Platelet Volume 9.8 FL (9.6-12.0); Monocytes % 9.2 % (1.7-12.7); Neutrophils % 66.7 % (38.7-73.9); Platelet Count 108 T/CUMM (130-400); Red Blood Count 2.05 MC/CUMM (3.8-5.5); Red Cell Distribution Width 14.5 % (9.3-17.3); White Blood Count 10.1 T/CUMM (4-12)
[2019-07-22] MEDS ORDERED: DOBUTamine 500 MG/250 ML PREMIX IV SCH (14:30)
[2019-07-22 14:44] LABS: Bilirubin,Total 1.4 MG/DL (0.2-1.0); Calcium 8.9 MG/DL (8.5-10.1); Hemoglobin 6.2 GM/DL (12.0-16.0); Osmolality,Calculated 291.8 MOS/KG (273-304); Total Protein 5.5 G/DL (6.4-8.3)
[2019-07-22] MEDS: ALBUMIN 5% 12.5 GM in PREMIX 1 EACH IV PRN (14:45)
[2019-07-22 14:48] LABS: INR 1.4; PT Patient Result 14.8 SECS (9.6-12.2); Partial Thromboplastin Time 28.7 SECS (20.8-36.0)
[2019-07-22 14:50] LABS: CKMB % 7.8 %
[2019-07-22] MEDS ORDERED: EPINEPHrine 1 MG/ML VIAL ONE (14:51)
[2019-07-22 14:52] LABS: Troponin I 16.2 NG/ML (0.00-0.045)
[2019-07-22] MEDS ORDERED: EPINEPHrine 1 MG/10 ML SYRINGE IV ONE (15:05)
[2019-07-22] MEDS ORDERED: MIDAZOLAM 2 MG/2 ML VIAL ONE (15:06)
[2019-07-22] MEDS ORDERED: NITROGLYCERIN DRIP 50 MG/250 ML BOTTLE IV ONE (15:06)
[2019-07-22] MEDS ORDERED: CALCIUM CHLORIDE 1,000 MG/10 ML VIAL IV ONE (15:06)
[2019-07-22] MEDS ORDERED: SEVOFLURANE 1 UNIT/15 MINUTE INH ONE (15:06)
[2019-07-22] MEDS ORDERED: ETOMIDATE 40 MG/20 ML VIAL IV ONE (15:07)
[2019-07-22] MEDS ORDERED: VECURONIUM 10 MG VIAL IV ONE (15:07)
[2019-07-22] MEDS ORDERED: PHENYLEPHRINE 1 MG/10 ML SYRINGE IV ONE (15:07)
[2019-07-22] MEDS ORDERED: LACTATED RINGERS 1,000 ML IV ONE (15:07)
[2019-07-22] MEDS ORDERED: SODIUM CHLORIDE 0.9% 1,000 ML IV ONE (15:07)
[2019-07-22] MEDS ORDERED: AMINOCAPROIC ACID 5,000 MG/20 ML VIAL ONE (15:07)
[2019-07-22 15:10] LABS: Anisocytosis 2+; Lymphocytes 24 % (20-55); Macrocytosis 2+; Microcytosis 1+; Platelet Estimate Decreased; Segmented Neutrophils 72 % (50-85); Total Cells Counted 100
[2019-07-22] MEDS: NITROGLYCERIN DRIP 50 MG/250 ML BOTTLE IV PRN (15:37)
[2019-07-22 16:41] LABS: Hematocrit Heart Surgery 31.3 PERCENT (37-47); Hemoglobin Heart Surgery 10.1 G/DL (12.0-16.0); PCO2 Patient Temp Venous 48.2 MM HG; PH Patient Temp Venous 7.222; PO2 Patient Temp Venous 37.5 MM HG; Potassium Heart/CVR 3.8 MMOL/L (3.5-5.1); VBG Base Excess -7.9 MEQ/L (0-4); VBG HCO3 17.6 MEQ/L (24-28); VBG Oxygen Saturation 68.9 %; VBG PCO2 48.2 MMHG (41-51); VBG PH 7.222; VBG PO2 37.5 MMHG (17-40)
[2019-07-22] MEDS: INSULIN REGULAR DRIP 100 ML IV SCH (16:58)
[2019-07-22 17:13] LABS: ABG Base Excess -9.2 MMOL/L (-2.5-2.5); ABG HCO3 17.1 MMOL/L (20-26); ABG Oxygen Saturation 99.3 % (95-100); ABG PCO2 40.6 MM HG (35-48); ABG PH 7.248 (7.35-7.45); ABG TCO2 16.3 MMOL/L (23-27); Glucose Heart Surgery 447 MG/DL (74-106); Hematocrit Heart Surgery 32.4 PERCENT (37-47); Hemoglobin Heart Surgery 10.5 G/DL (12.0-16.0); Potassium Heart/CVR 3.6 MMOL/L (3.5-5.1)
[2019-07-22] MEDS ORDERED: ALBUMIN 25% 25 GM in PREMIX 1 EACH IV ONE (17:15)
[2019-07-22] MEDS ORDERED: SODIUM CHLORIDE 23.4% CONC INJ 38.5 MEQ, SODIUM BICARB INJ 100 MEQ in STERILE WATER INJ... IV SCH (18:00)
[2019-07-22 18:45] LABS: ABG Base Excess -5.3 MMOL/L (-2.5-2.5); ABG HCO3 20.1 MMOL/L (20-26); ABG Oxygen Saturation 99.4 % (95-100); ABG PCO2 36.4 MM HG (35-48); ABG PH 7.345 (7.35-7.45); ABG TCO2 18.2 MMOL/L (23-27); Glucose Heart Surgery 399 MG/DL (74-106); Hematocrit Heart Surgery 29.9 PERCENT (37-47); Hemoglobin Heart Surgery 9.7 G/DL (12.0-16.0); Potassium Heart/CVR 3.4 MMOL/L (3.5-5.1)
[2019-07-22] MEDS: POTASSIUM CHLORIDE RIDER 20 MEQ in PREMIX 1 EACH IV PRN ×2 (19:34→20:35)
[2019-07-22] MEDS: CEFUROXIME INJ 1,500 MG in SYRINGE 1 EACH IV SCH (22:23)
[2019-07-22 23:07] LABS: ABG Base Excess -1.3 MMOL/L (-2.5-2.5); ABG HCO3 23.3 MMOL/L (20-26); ABG Oxygen Saturation 99.6 % (95-100); ABG PCO2 32.6 MM HG (35-48); ABG PH 7.441 (7.35-7.45); ABG TCO2 20.1 MMOL/L (23-27); Glucose Heart Surgery 274 MG/DL (74-106); Hematocrit Heart Surgery 31.5 PERCENT (37-47); Hemoglobin Heart Surgery 10.2 G/DL (12.0-16.0); Potassium Heart/CVR 4.3 MMOL/L (3.5-5.1)
[2019-07-22 23:32] LABS: CKMB % 6.9 %
[2019-07-22 23:37] LABS: Troponin I 24.9 NG/ML (0.00-0.045)
[2019-07-23] MEDS: INSULIN REGULAR DRIP 100 ML IV SCH (01:31)
[2019-07-23 02:07] LABS: ABG Base Excess 0.2 MMOL/L (-2.5-2.5); ABG HCO3 24.7 MMOL/L (20-26); ABG Oxygen Saturation 99.5 % (95-100); ABG PCO2 35.2 MM HG (35-48); ABG PH 7.441 (7.35-7.45); ABG TCO2 21.7 MMOL/L (23-27); Glucose Heart Surgery 160 MG/DL (74-106); Hematocrit Heart Surgery 31.9 PERCENT (37-47); Hemoglobin Heart Surgery 10.3 G/DL (12.0-16.0); Potassium Heart/CVR 3.8 MMOL/L (3.5-5.1)
[2019-07-23] MEDS: POTASSIUM CHLORIDE RIDER 20 MEQ in PREMIX 1 EACH IV PRN (02:18)
[2019-07-23 05:00] LABS: ABG Base Excess 0.1 MMOL/L (-2.5-2.5); ABG HCO3 24.6 MMOL/L (20-26); ABG Oxygen Saturation 99.5 % (95-100); ABG PCO2 41.3 MM HG (35-48); ABG PH 7.391 (7.35-7.45); ABG TCO2 22.7 MMOL/L (23-27); Glucose Heart Surgery 68 MG/DL (74-106); Hematocrit Heart Surgery 31.8 PERCENT (37-47); Hemoglobin Heart Surgery 10.3 G/DL (12.0-16.0); Potassium Heart/CVR 4.3 MMOL/L (3.5-5.1)
[2019-07-23 05:02] LABS: Basophils % 0.1 % (0.0-0.8); Hematocrit 29.8 VOL% (35.7-47.0); Hemoglobin 10.2 GM/DL (12.0-16.0); Immature Granulocytes % 0.4 %; Immature Granulocytes Absolute 0.05 #; Lymphocytes # 0.7 10*3/uL (1.4-4.0); Lymphocytes % 4.9 % (21.3-54.2); Mean Corpuscular HGB Conc 34.2 GM/DL (32-36); Mean Corpuscular Volume 88.7 FL (87-102); Mean Platelet Volume 11.9 FL (9.6-12.0); Monocytes % 11.8 % (1.7-12.7); Neutrophils % 82.8 % (38.7-73.9); Red Blood Count 3.36 MC/CUMM (3.8-5.5); Red Cell Distribution Width 14.5 % (9.3-17.3); White Blood Count 13.9 T/CUMM (4-12)
[2019-07-23 05:04] LABS: Platelet Count 70 T/CUMM (130-400)
[2019-07-23] MEDS ORDERED: DEXTROSE 10% 250 ML IV ONE (05:08)
[2019-07-23] MEDS ORDERED: DEXTROSE 10% 250 ML BAG IV PRN (05:09)
[2019-07-23 05:19] LABS: Albumin 3.7 G/DL (3.4-5.0); Bilirubin,Direct 0.28 MG/DL (0.0-0.20); Bilirubin,Total 0.6 MG/DL (0.2-1.0); Total Protein 6.1 G/DL (6.4-8.3)
[2019-07-23 06:09] LABS: Lymphocytes 4 % (20-55); Metamyelocytes 1 %; Platelet Estimate Decreased; Polychromasia Few; Segmented Neutrophils 89 % (50-85); Total Cells Counted 100
[2019-07-23 06:40] LABS: ABG Base Excess 0.5 MMOL/L (-2.5-2.5); ABG HCO3 24.9 MMOL/L (20-26); ABG Oxygen Saturation 97.6 % (95-100); ABG PCO2 48.1 MM HG (35-48); ABG PO2 91.5 MM HG (80-95); ABG TCO2 24.3 MMOL/L (23-27); Glucose Heart Surgery 110 MG/DL (74-106); Hematocrit Heart Surgery 30.7 PERCENT (37-47); Hemoglobin Heart Surgery 9.9 G/DL (12.0-16.0); Potassium Heart/CVR 4.4 MMOL/L (3.5-5.1)
[2019-07-23 07:06] LABS: CKMB % 7.2 %
[2019-07-23] MEDS: CHLORHEXIDINE 0.12% ORAL RINSE 60 ML BOTTLE SWISH/SPIT SCH ×2 (08:14→20:55)
[2019-07-23] MEDS: CEFUROXIME INJ 1,500 MG in SYRINGE 1 EACH IV SCH ×2 (09:21→23:09)
[2019-07-23] MEDS: INSULIN REGULAR 100 UNIT/ML SUBCUT SCH ×4 (09:21→20:16)
[2019-07-23] MEDS: traMADol 50 MG TABLET PO PRN (10:45)
[2019-07-23] MEDS ORDERED: DOBUTamine 500 MG/250 ML PREMIX IV ONE (13:11)
[2019-07-23] MEDS: ALBUMIN 5% 12.5 GM in PREMIX 1 EACH IV PRN ×2 (13:20→14:25)
[2019-07-23] MEDS: NITROGLYCERIN DRIP 50 MG/250 ML BOTTLE IV PRN (13:37)
[2019-07-23] MEDS: DOBUTamine 500 MG/250 ML PREMIX IV SCH (13:38)
[2019-07-23] MEDS ORDERED: LIDOCAINE 2% 20 ML VIAL ONE (15:20)
[2019-07-23 15:45] LABS: CKMB % 6.2 %
[2019-07-23 15:47] LABS: Troponin I 30.8 NG/ML (0.00-0.045)
[2019-07-23] MEDS: LATANOPROST 0.005% OPH SOLN 2.5 ML BOTTLE BOTH EYES SCH (20:55)
[2019-07-23] MEDS: INSULIN GLARGINE 100 UNIT/ML SUBCUT SCH (20:55)
[2019-07-24] MEDS: INSULIN REGULAR 100 UNIT/ML SUBCUT SCH ×6 (00:11→21:33)
[2019-07-24 04:49] LABS: Basophils % 0.1 % (0.0-0.8); Hematocrit 23.9 VOL% (35.7-47.0); Immature Granulocytes % 0.3 %; Immature Granulocytes Absolute 0.03 #; Lymphocytes % 9.5 % (21.3-54.2); Mean Corpuscular HGB Conc 33.5 GM/DL (32-36); Mean Corpuscular Volume 90.5 FL (87-102); Mean Platelet Volume 12.2 FL (9.6-12.0); Neutrophils % 81.1 % (38.7-73.9); Red Blood Count 2.64 MC/CUMM (3.8-5.5); White Blood Count 10.7 T/CUMM (4-12)
[2019-07-24 04:53] LABS: Platelet Count 43 T/CUMM (130-400)
[2019-07-24 05:13] LABS: Albumin 3.4 G/DL (3.4-5.0); Bilirubin,Direct 0.21 MG/DL (0.0-0.20); Bilirubin,Total 0.6 MG/DL (0.2-1.0); Calcium 8.5 MG/DL (8.5-10.1); Osmolality,Calculated 276.7 MOS/KG (273-304); Total Protein 5.9 G/DL (6.4-8.3)
[2019-07-24 05:15] LABS: Hypochromasia 1+; Platelet Estimate Decreased
[2019-07-24] MEDS ORDERED: HEPARIN 10,000 UNIT/10 ML VIAL IV SCH (06:30)
[2019-07-24] MEDS: PANTOPRAZOLE 40 MG TABLET PO SCH (10:50)
[2019-07-24] MEDS: CHLORHEXIDINE 0.12% ORAL RINSE 60 ML BOTTLE SWISH/SPIT SCH ×2 (10:50→21:32)
[2019-07-24] MEDS: DOBUTamine 500 MG/250 ML PREMIX IV SCH (14:48)
[2019-07-24] MEDS: traMADol 50 MG TABLET PO PRN (15:00)
[2019-07-24] MEDS ORDERED: HEPARIN/NACL 0.9% 2 UNITS/ML 500 ML IV ONE (16:34)
[2019-07-24] MEDS: LATANOPROST 0.005% OPH SOLN 2.5 ML BOTTLE BOTH EYES SCH (21:32)
[2019-07-24] MEDS: INSULIN GLARGINE 100 UNIT/ML SUBCUT SCH (21:33)
[2019-07-25] MEDS: INSULIN REGULAR 100 UNIT/ML SUBCUT SCH ×7 (00:24→21:34)
[2019-07-25 04:49] LABS: Basophils % 0.1 % (0.0-0.8); Eosinophils % 0.2 % (0.00-10.9); Hemoglobin 9.2 GM/DL (12.0-16.0); Immature Granulocytes % 0.4 %; Immature Granulocytes Absolute 0.04 #; Lymphocytes # 1.5 10*3/uL (1.4-4.0); Lymphocytes % 14.6 % (21.3-54.2); Mean Corpuscular HGB Conc 31.7 GM/DL (32-36); Mean Corpuscular Volume 94.2 FL (87-102); Mean Platelet Volume 12.2 FL (9.6-12.0); Neutrophils % 75.7 % (38.7-73.9); Red Blood Count 3.08 MC/CUMM (3.8-5.5); Red Cell Distribution Width 15.4 % (9.3-17.3); White Blood Count 10.3 T/CUMM (4-12)
[2019-07-25 04:52] LABS: Platelet Count 46 T/CUMM (130-400)
[2019-07-25 05:22] LABS: Hypochromasia 1+; Ovalocytes Slight; Platelet Estimate Decreased
[2019-07-25 05:25] LABS: Albumin 3.2 G/DL (3.4-5.0); Bilirubin,Direct 0.18 MG/DL (0.0-0.20); Bilirubin,Total 1.2 MG/DL (0.2-1.0); Calcium 7.8 MG/DL (8.5-10.1); Osmolality,Calculated 285.3 MOS/KG (273-304)
[2019-07-25] MEDS: DOBUTamine 500 MG/250 ML PREMIX IV SCH (06:39)
[2019-07-25] MEDS: CHLORHEXIDINE 0.12% ORAL RINSE 60 ML BOTTLE SWISH/SPIT SCH (08:41)
[2019-07-25] MEDS: PANTOPRAZOLE 40 MG TABLET PO SCH (08:41)
[2019-07-25] MEDS: traMADol 50 MG TABLET PO PRN ×2 (10:19→19:37)
[2019-07-25] MEDS: TROLAMINE SALICYLATE 10% CREAM 85 GM TUBE TOP PRN (10:24)
[2019-07-25] MEDS: amLODIPine 5 MG TABLET PO SCH (10:40)
[2019-07-25] MEDS ORDERED: hydrOXYzine HCL 10 MG TABLET PO PRN (14:01)
[2019-07-25] MEDS: SEVELAMER CARBONATE 800 MG TABLET PO SCH ×3 (14:46→17:21)
[2019-07-25] MEDS: PROMETHAZINE 25 MG TABLET PO PRN (19:37)
[2019-07-25] MEDS ORDERED: INSULIN GLARGINE 100 UNIT/ML SUBCUT SCH (21:00)
[2019-07-25] MEDS ORDERED: SODIUM CHLORIDE 0.9% 500 ML IV ONE (21:12)
[2019-07-25] MEDS: INSULIN GLARGINE 100 UNIT/ML SUBCUT SCH (21:34)
[2019-07-25] MEDS: ROSUVASTATIN 20 MG TABLET PO SCH (21:35)
[2019-07-25] MEDS: LATANOPROST 0.005% OPH SOLN 2.5 ML BOTTLE BOTH EYES SCH (21:38)
[2019-07-26] MEDS ORDERED: DEXTROSE 10% 250 ML IV ONE (07:26)
[2019-07-26] MEDS: INSULIN REGULAR 100 UNIT/ML SUBCUT SCH ×4 (07:52→21:40)
[2019-07-26] MEDS ORDERED: INSULIN LISPRO 100 UNIT/ML SUBCUT ONE (08:23)
[2019-07-26] MEDS ORDERED: amLODIPine 5 MG TABLET PO SCH (09:00)
[2019-07-26] MEDS: SEVELAMER CARBONATE 800 MG TABLET PO SCH ×3 (09:09→17:34)
[2019-07-26] MEDS ORDERED: HEPARIN 10,000 UNIT/10 ML VIAL IV SCH (12:00)
[2019-07-26] MEDS: traMADol 50 MG TABLET PO PRN ×2 (17:59→23:15)
[2019-07-26] MEDS ORDERED: ROSUVASTATIN 20 MG TABLET PO SCH (21:00)
[2019-07-26] MEDS ORDERED: INSULIN GLARGINE 100 UNIT/ML SUBCUT SCH (21:00)
[2019-07-26] MEDS: INSULIN GLARGINE 100 UNIT/ML SUBCUT SCH (21:40)
[2019-07-26] MEDS: ROSUVASTATIN 20 MG TABLET PO SCH (22:00)
[2019-07-26] MEDS: LATANOPROST 0.005% OPH SOLN 2.5 ML BOTTLE BOTH EYES SCH (22:01)
[2019-07-27] MEDS: INSULIN REGULAR 100 UNIT/ML SUBCUT SCH ×4 (08:58→20:40)
[2019-07-27] MEDS: amLODIPine 5 MG TABLET PO SCH (09:21)
[2019-07-27] MEDS: SEVELAMER CARBONATE 800 MG TABLET PO SCH ×3 (09:21→17:55)
[2019-07-27] MEDS: traMADol 50 MG TABLET PO PRN (13:44)
[2019-07-27] MEDS: KETOROLAC 30 MG/1 ML VIAL IV PRN (15:30)
[2019-07-27] MEDS ORDERED: ALBUMIN 5% 25 GM in PREMIX 1 EACH IV ONE (17:15)
[2019-07-27] MEDS: ROSUVASTATIN 20 MG TABLET PO SCH (20:37)
[2019-07-27] MEDS: INSULIN GLARGINE 100 UNIT/ML SUBCUT SCH (20:37)
[2019-07-27] MEDS: LATANOPROST 0.005% OPH SOLN 2.5 ML BOTTLE BOTH EYES SCH (20:40)
[2019-07-28 05:35] LABS: Basophils % 0.4 % (0.0-0.8); Eosinophils # 0.2 10*3/uL (0.0-0.87); Hematocrit 30.3 VOL% (35.7-47.0); Hemoglobin 9.3 GM/DL (12.0-16.0); Immature Granulocytes % 0.5 %; Immature Granulocytes Absolute 0.04 #; Lymphocytes # 1.5 10*3/uL (1.4-4.0); Lymphocytes % 17.4 % (21.3-54.2); Mean Corpuscular HGB Conc 30.7 GM/DL (32-36); Mean Corpuscular Volume 96.5 FL (87-102); Mean Platelet Volume 12.4 FL (9.6-12.0); Monocytes % 10.9 % (1.7-12.7); Neutrophils % 68.8 % (38.7-73.9); Red Blood Count 3.14 MC/CUMM (3.8-5.5); Red Cell Distribution Width 14.2 % (9.3-17.3); White Blood Count 8.5 T/CUMM (4-12)
[2019-07-28 05:39] LABS: Platelet Count 80 T/CUMM (130-400)
[2019-07-28 05:59] LABS: Calcium 8.6 MG/DL (8.5-10.1); Osmolality,Calculated 290.3 MOS/KG (273-304)
[2019-07-28 06:02] LABS: Platelet Estimate Decreased; Polychromasia Slight
[2019-07-28] MEDS: INSULIN REGULAR 100 UNIT/ML SUBCUT SCH ×4 (08:01→22:35)
[2019-07-28] MEDS: SEVELAMER CARBONATE 800 MG TABLET PO SCH ×3 (08:32→17:44)
[2019-07-28] MEDS: KETOROLAC 30 MG/1 ML VIAL IV PRN (08:32)
[2019-07-28] MEDS: amLODIPine 5 MG TABLET PO SCH (08:55)
[2019-07-28] MEDS: TROLAMINE SALICYLATE 10% CREAM 85 GM TUBE TOP PRN (09:45)
[2019-07-28] MEDS: ROSUVASTATIN 20 MG TABLET PO SCH (21:22)
[2019-07-28] MEDS: INSULIN GLARGINE 100 UNIT/ML SUBCUT SCH (21:23)
[2019-07-28] MEDS: LATANOPROST 0.005% OPH SOLN 2.5 ML BOTTLE BOTH EYES SCH (22:43)
[2019-07-29] MEDS: INSULIN REGULAR 100 UNIT/ML SUBCUT SCH ×5 (00:06→21:16)
[2019-07-29] MEDS: KETOROLAC 30 MG/1 ML VIAL IV PRN (08:50)
[2019-07-29] MEDS: SEVELAMER CARBONATE 800 MG TABLET PO SCH ×3 (08:51→17:34)
[2019-07-29] MEDS: traMADol 50 MG TABLET PO PRN (10:12)
[2019-07-29] MEDS ORDERED: HYDROmorphone 2 MG/1 ML VIAL IV PRN (12:59)
[2019-07-29] MEDS: PROMETHAZINE 25 MG TABLET PO PRN (13:31)
[2019-07-29] MEDS ORDERED: MORPHINE 4 MG/1 ML VIAL IV PRN (18:42)
[2019-07-29] MEDS: ROSUVASTATIN 20 MG TABLET PO SCH (21:16)
[2019-07-29] MEDS: INSULIN GLARGINE 100 UNIT/ML SUBCUT SCH (21:17)
[2019-07-30] MEDS: LATANOPROST 0.005% OPH SOLN 2.5 ML BOTTLE BOTH EYES SCH ×2 (02:17→22:05)
[2019-07-30] MEDS: INSULIN REGULAR 100 UNIT/ML SUBCUT SCH ×4 (08:28→21:13)
[2019-07-30] MEDS: SEVELAMER CARBONATE 800 MG TABLET PO SCH ×3 (08:31→17:25)
[2019-07-30] MEDS: traMADol 50 MG TABLET PO PRN ×2 (13:49→17:25)
[2019-07-30] MEDS: INSULIN GLARGINE 100 UNIT/ML SUBCUT SCH (21:07)
[2019-07-30] MEDS: ROSUVASTATIN 20 MG TABLET PO SCH (21:07)
[2019-07-30] MEDS: ONDANSETRON 4 MG/2 ML VIAL IV PRN (22:39)
[2019-07-31] MEDS: INSULIN REGULAR 100 UNIT/ML SUBCUT SCH ×4 (08:17→20:42)
[2019-07-31] MEDS: SEVELAMER CARBONATE 800 MG TABLET PO SCH ×3 (08:38→17:09)
[2019-07-31] MEDS: INSULIN GLARGINE 100 UNIT/ML SUBCUT SCH (20:42)
[2019-07-31] MEDS: ROSUVASTATIN 20 MG TABLET PO SCH (20:42)
[2019-07-31] MEDS: LATANOPROST 0.005% OPH SOLN 2.5 ML BOTTLE BOTH EYES SCH (20:59)
[2019-08-01] MEDS: KETOROLAC 30 MG/1 ML VIAL IV PRN (08:04)
[2019-08-01] MEDS: INSULIN REGULAR 100 UNIT/ML SUBCUT SCH ×4 (08:05→21:28)
[2019-08-01] MEDS: SEVELAMER CARBONATE 800 MG TABLET PO SCH ×3 (08:05→18:12)
[2019-08-01] MEDS ORDERED: CALCIUM CARBONATE CHEW 500 MG TABLET PO PRN (12:47)
[2019-08-01] MEDS: traMADol 50 MG TABLET PO PRN ×2 (13:22→23:52)
[2019-08-01] MEDS: TROLAMINE SALICYLATE 10% CREAM 85 GM TUBE TOP PRN (13:22)
[2019-08-01] MEDS: ROSUVASTATIN 20 MG TABLET PO SCH (21:27)
[2019-08-01] MEDS: INSULIN GLARGINE 100 UNIT/ML SUBCUT SCH (21:29)
[2019-08-01] MEDS: LATANOPROST 0.005% OPH SOLN 2.5 ML BOTTLE BOTH EYES SCH (22:54)
[2019-08-02] MEDS: ONDANSETRON 4 MG/2 ML VIAL IV PRN ×2 (03:51→09:56)
[2019-08-02] MEDS: MORPHINE 4 MG/1 ML VIAL IV PRN ×2 (03:52→09:56)
[2019-08-02 05:57] LABS: Basophils % 0.3 % (0.0-0.8); Eosinophils # 0.1 10*3/uL (0.0-0.87); Eosinophils % 1.3 % (0.00-10.9); Hematocrit 29.1 VOL% (35.7-47.0); Hemoglobin 8.9 GM/DL (12.0-16.0); Immature Granulocytes % 0.3 %; Immature Granulocytes Absolute 0.02 #; Lymphocytes # 0.9 10*3/uL (1.4-4.0); Lymphocytes % 11.1 % (21.3-54.2); Mean Corpuscular HGB Conc 30.6 GM/DL (32-36); Mean Corpuscular Volume 97.3 FL (87-102); Monocytes % 9.1 % (1.7-12.7); Neutrophils % 77.9 % (38.7-73.9); Platelet Count 119 T/CUMM (130-400); Red Blood Count 2.99 MC/CUMM (3.8-5.5); Red Cell Distribution Width 13.9 % (9.3-17.3); White Blood Count 7.7 T/CUMM (4-12)
[2019-08-02 06:11] LABS: Calcium 8.5 MG/DL (8.5-10.1); Osmolality,Calculated 284.8 MOS/KG (273-304)
[2019-08-02] MEDS: INSULIN REGULAR 100 UNIT/ML SUBCUT SCH ×4 (07:18→21:35)
[2019-08-02] MEDS: SEVELAMER CARBONATE 800 MG TABLET PO SCH ×3 (08:44→18:31)
[2019-08-02] MEDS: traMADol 50 MG TABLET PO PRN ×2 (08:45→14:16)
[2019-08-02] MEDS: ASPIRIN EC 81 MG TABLET PO SCH (14:15)
[2019-08-02] MEDS: carvediloL 3.125 MG TABLET PO SCH ×2 (21:26→22:25)
[2019-08-02] MEDS: INSULIN GLARGINE 100 UNIT/ML SUBCUT SCH (21:27)
[2019-08-02] MEDS: ROSUVASTATIN 20 MG TABLET PO SCH (21:34)
[2019-08-02] MEDS: LATANOPROST 0.005% OPH SOLN 2.5 ML BOTTLE BOTH EYES SCH (21:35)
[2019-08-03] MEDS: ONDANSETRON 4 MG/2 ML VIAL IV PRN (04:15)
[2019-08-03] MEDS: MORPHINE 4 MG/1 ML VIAL IV PRN (04:16)
[2019-08-03 06:05] LABS: Basophils % 0.4 % (0.0-0.8); Eosinophils # 0.1 10*3/uL (0.0-0.87); Eosinophils % 0.6 % (0.00-10.9); Hemoglobin 8.9 GM/DL (12.0-16.0); Immature Granulocytes % 0.4 %; Immature Granulocytes Absolute 0.03 #; Lymphocytes # 1.1 10*3/uL (1.4-4.0); Lymphocytes % 13.3 % (21.3-54.2); Mean Corpuscular HGB Conc 29.7 GM/DL (32-36); Mean Platelet Volume 11.9 FL (9.6-12.0); Monocytes % 11.7 % (1.7-12.7); Neutrophils % 73.6 % (38.7-73.9); Platelet Count 113 T/CUMM (130-400); Red Blood Count 3.06 MC/CUMM (3.8-5.5); Red Cell Distribution Width 14.4 % (9.3-17.3); White Blood Count 7.9 T/CUMM (4-12)
[2019-08-03 06:14] LABS: Osmolality,Calculated 284.7 MOS/KG (273-304)
[2019-08-03] MEDS ORDERED: EPINEPHrine 1 MG/10 ML SYRINGE ONE (07:06)
[2019-08-03] MEDS ORDERED: SODIUM BICARBONATE 50 MEQ/50 ML SYRINGE IV ONE (07:06)
[2019-08-03] MEDS ORDERED: NALOXONE 0.4 MG/ML VIAL ONE (07:06)
[2019-08-03] MEDS ORDERED: ATROPINE 1 MG/10 ML SYRINGE ONE (07:06)
[2019-08-03] MEDS ORDERED: PROPOFOL 1,000 MG/100 ML BOTTLE IV ONE (07:15)
[2019-08-03] MEDS ORDERED: PHENYLEPHRINE DRIP 40 MG/250 ML PREMIX IV ONE (07:53)
[2019-08-03] MEDS ORDERED: DOBUTamine 500 MG/250 ML PREMIX IV ONE (07:58)
[2019-08-03] MEDS ORDERED: HEPARIN/NACL 0.9% 2 UNITS/ML 500 ML IV ONE (08:00)
[2019-08-03] MEDS: DOBUTamine 500 MG/250 ML PREMIX IV SCH (08:00)
[2019-08-03 08:31] LABS: ABG Base Excess -15.7 MMOL/L (-2.5-2.5); ABG HCO3 12.5 MMOL/L (20-26); ABG Oxygen Saturation 99.8 % (95-100); ABG PCO2 22.1 MM HG (35-48); ABG PH 7.265 (7.35-7.45); ABG TCO2 9.3 MMOL/L (23-27); Allen Test Positive; Pt O2 Delivery Device Ventilator
[2019-08-03] MEDS ORDERED: PHENYLEPHRINE DRIP 40 MG/250 ML PREMIX IV PRN (09:02)
[2019-08-03] MEDS: INSULIN REGULAR 100 UNIT/ML SUBCUT SCH ×2 (09:51→12:59)
[2019-08-03] MEDS: SEVELAMER CARBONATE 800 MG TABLET PO SCH ×3 (09:53→16:46)
[2019-08-03] MEDS: carvediloL 3.125 MG TABLET PO SCH (09:53)
[2019-08-03 10:41] LABS: Basophils % 0.3 % (0.0-0.8); Eosinophils % 0.3 % (0.00-10.9); Hematocrit 32.7 VOL% (35.7-47.0); Hemoglobin 9.6 GM/DL (12.0-16.0); Immature Granulocytes % 1.3 %; Immature Granulocytes Absolute 0.12 #; Lymphocytes # 2.4 10*3/uL (1.4-4.0); Lymphocytes % 25.8 % (21.3-54.2); Mean Corpuscular HGB Conc 29.4 GM/DL (32-36); Mean Corpuscular Volume 100.9 FL (87-102); Mean Platelet Volume 12.9 FL (9.6-12.0); Monocytes % 3.3 % (1.7-12.7); Platelet Count 65 T/CUMM (130-400); Red Blood Count 3.24 MC/CUMM (3.8-5.5); Red Cell Distribution Width 14.2 % (9.3-17.3); White Blood Count 9.3 T/CUMM (4-12)
[2019-08-03 10:49] LABS: Calcium 10.6 MG/DL (8.5-10.1); Osmolality,Calculated 290.8 MOS/KG (273-304)
[2019-08-03] MEDS: ASPIRIN EC 81 MG TABLET PO SCH (11:07)
[2019-08-03 11:12] LABS: Macrocytosis Slight
[2019-08-03 11:13] LABS: Burr Cells Slight; Hypochromasia Slight; Platelet Estimate Decreased
[2019-08-03] MEDS: ASPIRIN CHEW 81 MG TABLET PO SCH (11:14)
[2019-08-03] MEDS ORDERED: DEXTROSE 10% 250 ML BAG IV PRN (12:39)
[2019-08-03] MEDS ORDERED: GLUCAGON 1 MG VIAL IM PRN (12:39)
[2019-08-03] MEDS ORDERED: MAGNESIUM SULF RIDER 1 GM in PREMIX 1 EACH IV PRN (12:44)
[2019-08-03] MEDS ORDERED: POTASSIUM CHLORIDE RIDER 100 ML IV PRN (12:44)
[2019-08-03] MEDS ORDERED: LORazepam 2 MG/1 ML VIAL IV PRN (13:55)
[2019-08-03] MEDS: FAMOTIDINE 20 MG/2 ML VIAL IV SCH (14:05)
[2019-08-03] MEDS: fentaNYL INJ 1,250 MCG in SODIUM CHLORIDE 0.9% 225 ML IV PRN ×2 (15:09→21:20)
[2019-08-03] MEDS: CISATRACURIUM 200 MG in SODIUM CHLORIDE 0.9% 180 ML IV SCH (15:12)
[2019-08-03 15:30] LABS: ABG Base Excess -3.4 MMOL/L (-2.5-2.5); ABG HCO3 21.6 MMOL/L (20-26); ABG Oxygen Saturation 99.9 % (95-100); ABG PCO2 35.9 MM HG (35-48); ABG PH 7.379 (7.35-7.45); ABG TCO2 19.2 MMOL/L (23-27)
[2019-08-03 15:57] LABS: Albumin 3.6 G/DL (3.4-5.0); Bilirubin,Total 1.5 MG/DL (0.2-1.0); Calcium 8.9 MG/DL (8.5-10.1); Osmolality,Calculated 284.5 MOS/KG (273-304); Total Protein 7.6 G/DL (6.4-8.3)
[2019-08-03 15:59] LABS: CKMB % 5.5 %
[2019-08-03 16:02] LABS: Troponin I 2.61 NG/ML (0.00-0.045)
[2019-08-03 16:23] LABS: INR 1.6; PT Patient Result 17.4 SECS (9.6-12.2)
[2019-08-03 16:33] LABS: Partial Thromboplastin Time 139.6 SECS (20.8-36.0)
[2019-08-03] MEDS: INSULIN REGULAR 100 UNIT/ML IV SCH ×3 (16:33→23:29)
[2019-08-03] MEDS: MINERAL OIL/PETROLATUM OPH OINT 3.5 GM TUBE BOTH EYES SCH ×2 (16:46→20:14)
[2019-08-03] MEDS: PROPOFOL 1,000 MG/100 ML BOTTLE IV SCH (19:49)
[2019-08-03] MEDS: INSULIN GLARGINE 100 UNIT/ML SUBCUT SCH (20:14)
[2019-08-03] MEDS: ROSUVASTATIN 20 MG TABLET PO SCH (20:14)
[2019-08-03] MEDS: LATANOPROST 0.005% OPH SOLN 2.5 ML BOTTLE BOTH EYES SCH ×2 (20:14→22:04)
[2019-08-03 20:18] LABS: Basophils % 0.1 % (0.0-0.8); Hematocrit 28.4 VOL% (35.7-47.0); Immature Granulocytes % 0.4 %; Immature Granulocytes Absolute 0.05 #; Lymphocytes # 0.7 10*3/uL (1.4-4.0); Lymphocytes % 6.2 % (21.3-54.2); Mean Corpuscular HGB Conc 31.7 GM/DL (32-36); Mean Corpuscular Volume 92.2 FL (87-102); Mean Platelet Volume 11.8 FL (9.6-12.0); Neutrophils % 88.3 % (38.7-73.9); Platelet Count 103 T/CUMM (130-400); Red Blood Count 3.08 MC/CUMM (3.8-5.5); Red Cell Distribution Width 14.2 % (9.3-17.3); White Blood Count 11.7 T/CUMM (4-12)
[2019-08-03 20:49] LABS: INR 1.5; PT Patient Result 15.8 SECS (9.6-12.2); Partial Thromboplastin Time 34.4 SECS (20.8-36.0)
[2019-08-03 20:54] LABS: Calcium 8.8 MG/DL (8.5-10.1); Osmolality,Calculated 286.8 MOS/KG (273-304)
[2019-08-03 21:44] LABS: CKMB % 7.1 %
[2019-08-03 21:53] LABS: Troponin I 2.78 NG/ML (0.00-0.045)
[2019-08-04] MEDS: CISATRACURIUM 200 MG in SODIUM CHLORIDE 0.9% 180 ML IV SCH ×2 (02:12→15:23)
[2019-08-04 03:24] LABS: ABG HCO3 22.8 MMOL/L (20-26); ABG PH 7.483 (7.35-7.45); ABG TCO2 17.8 MMOL/L (23-27)
[2019-08-04 03:34] LABS: Basophils % 0.1 % (0.0-0.8); Hematocrit 27.1 VOL% (35.7-47.0); Hemoglobin 8.8 GM/DL (12.0-16.0); Immature Granulocytes % 0.3 %; Immature Granulocytes Absolute 0.03 #; Lymphocytes % 9.7 % (21.3-54.2); Mean Corpuscular HGB Conc 32.5 GM/DL (32-36); Mean Corpuscular Volume 90.6 FL (87-102); Mean Platelet Volume 12.1 FL (9.6-12.0); Monocytes % 5.9 % (1.7-12.7); Platelet Count 91 T/CUMM (130-400); Red Blood Count 2.99 MC/CUMM (3.8-5.5); Red Cell Distribution Width 14.1 % (9.3-17.3)
[2019-08-04 03:44] LABS: INR 1.5; PT Patient Result 16.1 SECS (9.6-12.2); Partial Thromboplastin Time 33.8 SECS (20.8-36.0)
[2019-08-04 03:50] LABS: Calcium 8.6 MG/DL (8.5-10.1); Osmolality,Calculated 286.7 MOS/KG (273-304)
[2019-08-04 04:08] LABS: CKMB % 7.7 %
[2019-08-04 04:16] LABS: Troponin I 2.45 NG/ML (0.00-0.045)
[2019-08-04 04:20] LABS: Eosinophils 1 % (0-10); Hypochromasia Slight; Lymphocytes 9 % (20-55); Platelet Estimate Decreased; Segmented Neutrophils 87 % (50-85); Total Cells Counted 100
[2019-08-04 04:21] LABS: Anisocytosis Slight; Microcytosis Slight
[2019-08-04] MEDS: INSULIN REGULAR 100 UNIT/ML IV SCH ×5 (04:31→20:23)
[2019-08-04] MEDS: fentaNYL INJ 1,250 MCG in SODIUM CHLORIDE 0.9% 225 ML IV PRN ×3 (04:38→19:22)
[2019-08-04] MEDS: DOBUTamine 500 MG/250 ML PREMIX IV SCH (08:08)
[2019-08-04] MEDS: SEVELAMER CARBONATE 800 MG TABLET PO SCH ×2 (08:11→12:19)
[2019-08-04] MEDS: FAMOTIDINE 20 MG/2 ML VIAL IV SCH (08:41)
[2019-08-04] MEDS: MINERAL OIL/PETROLATUM OPH OINT 3.5 GM TUBE BOTH EYES SCH ×3 (08:46→21:00)
[2019-08-04] MEDS: ASPIRIN CHEW 81 MG TABLET PO SCH (08:50)
[2019-08-04 09:36] LABS: Basophils % 0.2 % (0.0-0.8); Eosinophils % 0.1 % (0.00-10.9); Hematocrit 25.6 VOL% (35.7-47.0); Hemoglobin 8.4 GM/DL (12.0-16.0); Immature Granulocytes % 0.6 %; Immature Granulocytes Absolute 0.06 #; Lymphocytes % 9.8 % (21.3-54.2); Mean Corpuscular HGB Conc 32.8 GM/DL (32-36); Mean Corpuscular Volume 91.1 FL (87-102); Mean Platelet Volume 11.9 FL (9.6-12.0); Monocytes % 5.4 % (1.7-12.7); Neutrophils % 83.9 % (38.7-73.9); Platelet Count 96 T/CUMM (130-400); Red Blood Count 2.81 MC/CUMM (3.8-5.5); Red Cell Distribution Width 13.9 % (9.3-17.3); White Blood Count 10.3 T/CUMM (4-12)
[2019-08-04 09:45] LABS: INR 1.6; Partial Thromboplastin Time 33.4 SECS (20.8-36.0)
[2019-08-04 09:54] LABS: Microcytosis Slight; Platelet Estimate Decreased
[2019-08-04 09:55] LABS: Hypochromasia Slight; Ovalocytes Slight
[2019-08-04 10:02] LABS: Calcium 8.5 MG/DL (8.5-10.1); Osmolality,Calculated 287.5 MOS/KG (273-304)
[2019-08-04 10:03] LABS: CKMB % 8.2 %; Troponin I 2.01 NG/ML (0.00-0.045)
[2019-08-04] MEDS ORDERED: ASPIRIN 300 MG SUPP RECTAL SCH (10:30)
[2019-08-04] MEDS: PROPOFOL 1,000 MG/100 ML BOTTLE IV SCH (12:22)
[2019-08-04 15:12] LABS: INR 1.5; PT Patient Result 16.6 SECS (9.6-12.2)
[2019-08-04 15:16] LABS: Calcium 8.3 MG/DL (8.5-10.1); Osmolality,Calculated 287.4 MOS/KG (273-304)
[2019-08-04 15:18] LABS: Basophils % 0.2 % (0.0-0.8); Eosinophils % 0.3 % (0.00-10.9); Hematocrit 26.7 VOL% (35.7-47.0); Hemoglobin 8.6 GM/DL (12.0-16.0); Immature Granulocytes % 0.5 %; Immature Granulocytes Absolute 0.05 #; Lymphocytes # 1.2 10*3/uL (1.4-4.0); Lymphocytes % 12.2 % (21.3-54.2); Mean Corpuscular HGB Conc 32.2 GM/DL (32-36); Mean Corpuscular Volume 91.8 FL (87-102); Mean Platelet Volume 11.8 FL (9.6-12.0); Monocytes % 4.8 % (1.7-12.7); Platelet Count 95 T/CUMM (130-400); Red Blood Count 2.91 MC/CUMM (3.8-5.5); Red Cell Distribution Width 14.1 % (9.3-17.3); White Blood Count 9.5 T/CUMM (4-12)
[2019-08-04 15:47] LABS: Platelet Estimate Decreased
[2019-08-04] MEDS: INSULIN GLARGINE 100 UNIT/ML SUBCUT SCH (20:29)
[2019-08-04] MEDS: ROSUVASTATIN 20 MG TABLET PO SCH (20:48)
[2019-08-04] MEDS: LATANOPROST 0.005% OPH SOLN 2.5 ML BOTTLE BOTH EYES SCH (21:01)
[2019-08-04 21:32] LABS: Basophils % 0.1 % (0.0-0.8); Eosinophils % 0.1 % (0.00-10.9); Hematocrit 27.7 VOL% (35.7-47.0); Hemoglobin 8.8 GM/DL (12.0-16.0); Immature Granulocytes % 0.4 %; Immature Granulocytes Absolute 0.05 #; Lymphocytes # 0.9 10*3/uL (1.4-4.0); Lymphocytes % 7.4 % (21.3-54.2); Mean Corpuscular HGB Conc 31.8 GM/DL (32-36); Mean Platelet Volume 11.7 FL (9.6-12.0); Monocytes % 4.8 % (1.7-12.7); Neutrophils % 87.2 % (38.7-73.9); Platelet Count 92 T/CUMM (130-400); Red Blood Count 3.01 MC/CUMM (3.8-5.5); Red Cell Distribution Width 14.4 % (9.3-17.3); White Blood Count 11.6 T/CUMM (4-12)
[2019-08-04 21:52] LABS: Calcium 8.6 MG/DL (8.5-10.1); Osmolality,Calculated 288.5 MOS/KG (273-304)
[2019-08-04] MEDS ORDERED: DEXTROSE 50% 25 GM/50 ML VIAL IV PRN (22:19)
[2019-08-04] MEDS ORDERED: GLUCAGON 1 MG VIAL IM PRN (22:19)
[2019-08-04 22:41] LABS: Band Neutrophils 2 % (0-10); Lymphocytes 3 % (20-55); Segmented Neutrophils 94 % (50-85)
[2019-08-04 22:42] LABS: Hypochromasia Slight; Platelet Estimate Decreased; Total Cells Counted 100
[2019-08-04 22:51] LABS: INR 1.5; Partial Thromboplastin Time 33.8 SECS (20.8-36.0)
[2019-08-05] MEDS ORDERED: INSULIN REGULAR 100 UNIT/ML IV SCH
[2019-08-05] MEDS: PROPOFOL 1,000 MG/100 ML BOTTLE IV SCH (00:02)
[2019-08-05 01:03] VITALS: BP 124/57
[2019-08-05 02:08] LABS: ABG HCO3 10.4 MMOL/L (20-26); ABG Oxygen Saturation 99.3 % (95-100); ABG TCO2 7.3 MMOL/L (23-27); Glucose Heart Surgery 248 MG/DL (74-106); Hematocrit Heart Surgery 30.5 PERCENT (37-47); Hemoglobin Heart Surgery 9.9 G/DL (12.0-16.0); Potassium Heart/CVR 5.4 MMOL/L (3.5-5.1)
[2019-08-05 02:10] LABS: ABG PCO2 19.7 MM HG (35-48); ABG PH 7.206 (7.35-7.45)
== END 2019-08-05 02:15 | disposition expired | DRG 219 ==
LOC: N.TELEN 08:58 → N.CVR 07-22 13:31 → N.ICU 07-23 10:01 → N.TELES 07-25 13:43 → N.CVR 07-26 07:28 → N.ICU 07-26 14:56 → N.TELES 07-27 16:27 → N.ICU 07-27 17:31 → N.TELES 07-28 18:50 → N.ICU 08-03 06:50
PROC: CABGAVR (ICD-10-PCS; 2019-07-22 06:50)